=== PATIENT | female | born 1940 | race Hispanic/Latino ===

== ENCOUNTER 2018-07-26 12:11 | Emergency (ER) | payer OTHER ==
[2018-07-26 12:41] LABS: BASOPHILS % (AUTO) 0.5 % (0.0-5.0); EOSINOPHILS % (AUTO) 3.1 % (0.0-8.0); HEMATOCRIT 32.9 % (36-48); LYMPHOCYTES % (AUTO) 22.3 % (21.0-51.0); MEAN CORPUSCULAR HEMOGLOBIN 27.5 pg (27.0-33.0); MEAN CORPUSCULAR HGB CONC 33.2 g/dL (32.0-36.0); MEAN CORPUSCULAR VOLUME 82.9 fL (79-99); MONOCYTES % (AUTO) 5.7 % (3.0-13.0); NEUTROPHILS % (AUTO) 68.4 % (40.0-77.0); PLATELET COUNT (AUTO) 183 K/uL (130-400); RED BLOOD CELL COUNT(AUTO) 3.97 MIL/uL (4.00-5.50); RED CELL DISTRIBUTION WIDTH 15.3 % (11.0-15.5); WHITE BLOOD COUNT (AUTO) 8.7 K/uL (4.8-10.8)
[2018-07-26 12:53] LABS: CREATININE 1.2 mg/dL (0.5-1.5); INR 1.02 (0.85-1.15); PARTIAL THROMBOPLASTIN TIME 30.3 SEC (26.3-35.5); POTASSIUM 4.2 mmol/L (3.5-5.1); PROTHROMBIN TIME 10.7 SEC (9.6-11.6)
[2018-07-26 13:07] LABS: B-TYPE NATRIURETIC PEPTIDE 1350 pg/mL (0-100)
[2018-07-26 13:08] LABS: ALBUMIN 3.9 g/dL (3.5-5.0); BILIRUBIN,TOTAL 0.6 mg/dL (0.2-1.0); TOTAL PROTEIN, SERUM 8.5 g/dL (6.0-8.3)
[2018-07-26] MEDS ORDERED: ASPIRIN 325 MG TABLET ONE (14:21)
[2018-07-26] MEDS ORDERED: NITROGLYCERIN 1GM/1 INCH PACKET TD ONE (14:21)
[2018-07-26] MEDS ORDERED: FUROSEMIDE 10 MG/ML 2ML VIAL ONE (14:28)
== END 2018-07-26 15:39 | disposition home or self-care (01) ==
LOC: EDH 12:11
DX: I11.0 Hypertensive heart disease with heart failure (principal); I50.40 Unspecified combined systolic (congestive) and diastolic (congestive) heart failure; E11.9 Type 2 diabetes mellitus without complications; I25.810 Atherosclerosis of coronary artery bypass graft(s) without angina pectoris; R60.0 Localized edema; Z95.1 Presence of aortocoronary bypass graft
CPT/HCPCS: 36415; 71045; 80053; 82550; 83874; 83880; 84484 ×2; 85025; 85610; 85730; 93005 ×2; 96374; 99284; J1940

== ENCOUNTER 2022-09-19 10:10 | Emergency (ER) | payer OTHER ==
[~2022-09-19] VITALS: Ht 152.4 cm; Wt 59.9 kg
[~2022-09-19 10:10] MED LIST: AMLO5TAB4 PO; ATOR40TA69 PO; GLIP5TAB11 PO; INSU3INS3 SQ; METO5TAB2 PO; SYRI-1554 MC
[2022-09-19 11:10] LABS: BASOPHILS % (AUTO) 0.7 % (0.0-5.0); EOSINOPHILS % (AUTO) 0.6 % (0.0-8.0); HEMATOCRIT 34.9 % (36-48); LYMPHOCYTES % (AUTO) 12.6 % (21.0-51.0); MEAN CORPUSCULAR HEMOGLOBIN 26.2 pg (27.0-33.0); MEAN CORPUSCULAR HGB CONC 32.4 g/dL (32.0-36.0); NEUTROPHILS % (AUTO) 80.2 % (40.0-77.0); PLATELET COUNT (AUTO) 298 K/uL (130-400); RED BLOOD CELL COUNT(AUTO) 4.31 MIL/uL (4.00-5.50); RED CELL DISTRIBUTION WIDTH 14.6 % (11.0-15.5); WHITE BLOOD COUNT (AUTO) 8.2 K/uL (4.8-10.8)
[2022-09-19 11:17] LABS: ALBUMIN 3.5 g/dL (3.5-5.0); CREATININE 1.5 mg/dL (0.5-1.5); POTASSIUM 4.3 mmol/L (3.5-5.1); TOTAL PROTEIN, SERUM 8.4 g/dL (6.0-8.3)
[2022-09-19 11:33] LABS: B-TYPE NATRIURETIC PEPTIDE 418 pg/mL (0-100)
[2022-09-19] MEDS ORDERED: 0.9%NACL 1000ML 2,000 ML IV ONE (12:00)
[2022-09-19 14:24] LABS: APPEARANCE,URINE CLEAR (CLEAR); BILIRUBIN,URINE NEGATIVE (NEGATIVE); COLOR,URINE LIGHT-YELLOW (YELLOW); GLUCOSE, URINE (UA) >=1000 mg/dL (NEGATIVE); KETONES,URINE NEGATIVE (NEGATIVE); LEUKOCYTE ESTERASE ,URINE 500 Leu/uL (NEGATIVE); NITRATE,URINE NEGATIVE (NEGATIVE); OCCULT BLOOD,URINE NEGATIVE (NEGATIVE); PH,URINE 6.5 (5.0-8.0); PROTEIN,URINE 10 mg/dL (NEGATIVE); UROBILINOGEN,URINE 0.2 mg/dL (0.2-1.0)
[2022-09-19 14:29] LABS: BACTERIA,URINE RARE /HPF (None Seen); RBC,URINE 0-1 /HPF (0-1); SQUAMOUS EPITHELIAL CELL,UR RARE /HPF (0-2)
[2022-09-19] MEDS ORDERED: CEPH500B PO (14:41)
[2022-09-19 15:11] VITALS: BP 129/72
== END 2022-09-19 15:12 | disposition home or self-care (01) ==
LOC: EDH 10:10
DX: N39.0 Urinary tract infection, site not specified (principal); E11.9 Type 2 diabetes mellitus without complications; I10 Essential (primary) hypertension; Z79.899 Other long term (current) drug therapy; Z90.49 Acquired absence of other specified parts of digestive tract; Z95.1 Presence of aortocoronary bypass graft
CPT/HCPCS: 99285; 74176; 96360; 71045; 84484; 80053; 83880; 85025; 87088; 83605; 81001; 36415; 93005; J7030

== ENCOUNTER 2023-06-28 12:15 | Emergency (ER) | payer OTHER ==
[~2023-06-28] VITALS: Ht 165.1 cm; Wt 59.9 kg
[~2023-06-28 12:15] MED LIST changes: +CEPH500B PO; -GLIP5TAB11 PO; +GLIP5TAB15 PO
[2023-06-28 13:24] LABS: BASOPHILS # (AUTO) 0.05 K/uL (0.00-0.20); BASOPHILS % (AUTO) 0.5 % (0.0-5.0); EOSINOPHILS # (AUTO) 0.03 K/uL (0.00-0.70); EOSINOPHILS % (AUTO) 0.3 % (0.0-8.0); HEMATOCRIT 34.9 % (36-48); IMMATURE GRANULOCYTE ABSOLUTE 0.05 K/uL (0-1); LYMPHOCYTES # (AUTO) 0.9 K/uL (1.0-4.8); LYMPHOCYTES % (AUTO) 9.4 % (21.0-51.0); MEAN CORPUSCULAR HEMOGLOBIN 26.5 pg (27.0-33.0); MEAN CORPUSCULAR HGB CONC 32.7 g/dL (32.0-36.0); MEAN CORPUSCULAR VOLUME 81.2 fL (79-99); MONOCYTES # (AUTO) 0.3 K/uL (0.1-1.0); MONOCYTES % (AUTO) 3.1 % (3.0-13.0); NEUTROPHILS % (AUTO) 86.2 % (40.0-77.0); PLATELET COUNT (AUTO) 270 K/uL (130-400); RED CELL DISTRIBUTION WIDTH 13.5 % (11.0-15.5); WHITE BLOOD COUNT (AUTO) 9.3 K/uL (4.8-10.8)
[2023-06-28 13:31] LABS: CREATININE 1.3 mg/dL (0.5-1.5); POTASSIUM 4.3 mmol/L (3.5-5.1)
[2023-06-28] MEDS: ACETAMINOPHEN 500 MG TABLET PO ONE (16:33)
[2023-06-28 17:29] VITALS: BP 158/80; PULSE 84; RESP 16; O2SAT 97
== END 2023-06-28 17:30 | disposition home or self-care (01) ==
LOC: EDH 12:15
DX: G44.209 Tension-type headache, unspecified, not intractable (principal); E86.0 Dehydration; I10 Essential (primary) hypertension; D64.9 Anemia, unspecified; E11.9 Type 2 diabetes mellitus without complications; Z79.899 Other long term (current) drug therapy
CPT/HCPCS: 36415; 80048; 84484; 85025